=== PATIENT | female | born 1950 | race Caucasian/White ===

== ENCOUNTER → 2023-12-07 09:04 | Outpatient (REF) | payer OTHER, SELFPAY ==
[2023-12-07 10:05] LABS: % Basophils 0.2 % (0-2); % Eosinophils 1.8 % (0-6); % Immature Granulocytes 0.4 % (0-0.5); % Lymphocytes 27.7 % (20.5-51.1); % Monocytes 7.4 % (1.7-9.3); % Neutrophils 62.5 % (42.2-75.2); Absolute Eosinophils 0.1 10^3/uL (0-0.7); Absolute Lymphocytes 1.5 10^3/uL (1.2-3.4); Absolute Monocytes 0.4 10^3/uL (0.1-0.6); Absolute Neutrophils 3.5 10^3/uL (1.4-6.5); Hematocrit 36.9 % (37.0-47.0); Hemoglobin 12.1 g/dL (12.0-16.0); Mean Corp Hgb Conc. 32.8 g/dL (33.0-37.0); Mean Corpuscular Hgb 30.2 pg (27.0-31.0); Mean Platelet Volume 11.9 fL (7.4-10.4); Nucleated Red Blood Cells % 0 %; Platelet Count 125 10^3/uL (130-400); Red Blood Cell Count 4.01 10^6/uL (4.20-5.40); Red Cell Dist. Width 12.8 % (11.5-14.5); White Blood Cell Count 5.6 10^3/uL (4.8-10.8)
[2023-12-07 10:30] LABS: Microalbumin, Random Urine 2.7 mg/dl (0.6-1.7); Microalbumin/creatinine Ratio 40.1 mg/g
[2023-12-07 11:06] LABS: ALT (SGPT) 14 U/L (0-35); AST (SGOT) 30 U/L (14-36); Albumin 4.5 g/dl (3.5-5.0); Alkaline Phosphatase 64 U/L (38-126); Blood Urea Nitrogen 21 mg/dl (7-17); Calcium 10.1 mg/dl (8.4-10.2); Carbon Dioxide 30 mmol/L (22-30); Chloride 96 mmol/L (98-107); Glucose 111 mg/dl (70-99); HDL Cholesterol 58 mg/dl; LDL Cholesterol, Calculated 52 mg/dl; Potassium 3.6 mmol/L (3.5-5.1); Sodium 134 mmol/L (135-145); TSH 3.15 uIU/ml (0.47-4.68); Total Bilirubin 0.7 mg/dl (0.2-1.3); Total Cholesterol 134 mg/dl (50-199); Total Protein 6.9 g/dl (6.3-8.2); Triglyceride 123 mg/dl (10-149); Very Low Density Lipoprotein 24 mg/dl (0-30); eGFR > 60.00
[2023-12-07 11:22] LABS: Vitamin B12 849 pg/ml (239-931)
[2023-12-07 11:37] LABS: Glycohemoglobin (HgbA1c) 5.3 % (4.0-5.6)
== END ==
LOC: REG 09:04
PROVIDERS: ATTENDING PHYSICIAN Family Medicine
DX: E78.2 Mixed hyperlipidemia (principal); E11.69 Type 2 diabetes mellitus with other specified complication; E03.9 Hypothyroidism, unspecified; E53.8 Deficiency of other specified B group vitamins; D69.6 Thrombocytopenia, unspecified
CPT/HCPCS: 36415; 80053; 80061; 82043; 82570; 82607; 83036; 84439; 84443; 85025

== ENCOUNTER → 2024-05-25 18:59 | Outpatient (REF) | payer OTHER, SELFPAY | LOC: WDC 18:59 | PROVIDERS: ATTENDING PHYSICIAN Family Medicine | DX: Z12.31 Encounter for screening mammogram for malignant neoplasm of breast (principal) | CPT/HCPCS: 77063; 77067 ==

== ENCOUNTER → 2025-04-14 07:08 | Outpatient (REF) | payer OTHER, SELFPAY ==
[2025-04-14 08:13] LABS: Urine Character Clear (Clear)
[2025-04-14 08:23] LABS: Hematocrit 36.1 % (37.0-47.0); Hemoglobin 11.9 g/dL (12.0-16.0); Mean Corp Hgb Conc. 33.0 g/dL (33.0-37.0); Mean Corpuscular Volume 90.7 fL (81.0-99.0); Nucleated Red Blood Cells % 0 %; Platelet Count 113 10^3/uL (130-400); Red Cell Dist. Width 12.7 % (11.5-14.5)
[2025-04-14 08:38] LABS: Microalb - Urine Creatinine 41.000 mg/dl
[2025-04-14 08:39] LABS: Microalbumin, Random Urine 0.7 mg/dl (0.6-1.7)
[2025-04-14 09:03] LABS: Urine Red Blood Cell 0-2 /HPF (0-2); Urine Squamous Cell 0-2 /LPF (Few); Urine White Cell 0-2 /HPF (0-5)
[2025-04-14 09:42] LABS: ALT (SGPT) 13 U/L (0-35); AST (SGOT) 26 U/L (14-36); Albumin 4.6 g/dl (3.5-5.0); Alkaline Phosphatase 47 U/L (38-126); Blood Urea Nitrogen 20 mg/dl (7-17); Calcium 9.9 mg/dl (8.4-10.2); Carbon Dioxide 31 mmol/L (22-30); Chloride 102 mmol/L (98-107); Glucose 101 mg/dl (70-99); HDL Cholesterol 49 mg/dl; LDL Cholesterol, Calculated 71 mg/dl; Potassium 3.8 mmol/L (3.5-5.1); Sodium 141 mmol/L (135-145); Total Protein 6.9 g/dl (6.3-8.2); Very Low Density Lipoprotein 25 mg/dl (0-30); eGFR > 60.00
[2025-04-14 10:45] LABS: Folate > 20.0 ng/ml (2.76-20); Vitamin B12 297 pg/ml (239-931)
[2025-04-14 10:52] LABS: Glycohemoglobin (HgbA1c) 5.2 % (4.0-5.6)
== END ==
LOC: REG 07:08
PROVIDERS: ATTENDING PHYSICIAN Family Medicine
DX: E53.8 Deficiency of other specified B group vitamins (principal); D69.6 Thrombocytopenia, unspecified; E11.69 Type 2 diabetes mellitus with other specified complication; I10 Essential (primary) hypertension; R41.3 Other amnesia; E78.2 Mixed hyperlipidemia
CPT/HCPCS: 36415; 80053; 80061; 81003; 81015; 82043; 82570; 82607; 82746; 83036; 84439; 84443; 85025

== ENCOUNTER → 2025-08-13 15:13 | Outpatient (REF) | payer OTHER, SELFPAY | LOC: WDC 15:13 | PROVIDERS: ATTENDING PHYSICIAN Family Medicine | DX: Z12.31 Encounter for screening mammogram for malignant neoplasm of breast (principal) | CPT/HCPCS: 77063; 77067 ==